=== PATIENT | male | born 1960 | race Caucasian/White ===

== ENCOUNTER 2017-10-09 09:32 | Emergency (ER) | payer BC ==
[2017-10-09] MEDS ORDERED: Sodium Chloride 0.9% 5 ML Syringe FLUSH PRN (09:49)
[2017-10-09] MEDS ORDERED: Ondansetron 4 MG/2 ML SDV IVPUSH ONE (10:21)
[2017-10-09] MEDS ORDERED: Morphine 4 MG/ML Syringe IVPUSH ONE (10:21)
[2017-10-09 10:24] LABS: CHLORIDE,CL 104 mmol/L (98-115); SODIUM,NA 141 mmol/L (136-145)
[2017-10-09] MEDS ORDERED: Famotidine 20 MG/2 ML SDV IVPUSH ONE (10:24)
--- NOTE | 2017-10-09 10:31 | EDM.PDOC ---
ED HPI GENERAL MEDICAL PROBLEM - General Chief Complaint: Chest Pain Stated Complaint: Chest pain Time Seen by Provider: 10/09/17 09:49 Source of Information: Reports: Patient History Limitations: Reports: No Limitations - History of Present Illness INITIAL COMMENTS - FREE TEXT/NARRATIVE: Patient is a 57-year-old gentleman who presents to the emergency department this morning with a complaint of chest pain. Patient states at approximately 7 a.m. this morning he had a Pop Tart and bottle of Mountain Dew and developed severe pain in his mid sternum and epigastric region. Pain described as feeling like a bubble under his skin and radiated under her left breast. Patient states that incident was while seated at rest. Symptoms did not resolve , and he decided to present to the emergency department. 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 Patient did have a brother who was 52 years old and from [place]. Patient is currently on hypertensive and diabetic medication and states he is well- controlled. Patient denies shortness of breath, headache, fever, nausea, vomiting, diarrhea, out of country travel, or extremity edema. Onset: Today Onset Date: 10/09/17 Onset Time: 07:00 Duration: Hour(s):, Constant Location: Reports: Chest, Abdomen Quality: Reports: Ache, Burning Severity: Moderate Improves with: Reports: None Worsens with: Reports: None Associated Symptoms: Reports: Chest Pain Treatments DBA: Reports: Aspirin Chest Pain Score (Numeric/FACES): 12 - Related Data Allergies Allergy/AdvReac Type Severity Reaction Status Date / Time No Known Drug Allergies Allergy Cannot Verified 06/22/15 22:01 Remember Home Meds: Home Meds [place] 1 cap PO DAILY 06/23/15 [History] Krill/Om-3/DHA/EPA/Phospho/Ast [Megared Dante-3 Krill Oil Sfgl] 1 each PO DAILY 06/23/15 [History] Metoprolol Succinate [Toprol XL] 50 mg PO DAILY 06/23/15 [History] Multivit-Min/FA/Lycopene/Lut [Centrum Silver Tablet] 1 each PO DAILY 06/23/15 [ History] atorvaSTATin [Lipitor] 20 mg PO BEDTIME 06/23/15 [History] metFORMIN [Glucophage] 500 mg PO DAILY 06/23/15 [History] Aspirin 81 mg PO DAILY 10/09/17 [History] Lutein/Minerals/Vit A,C & E [Ocuvite] 1 tab PO DAILY 10/09/17 [History] Milk Thistle 175 mg PO DAILY 10/09/17 [History] Ranitidine HCl [Zantac] 150 mg PO BID #30 tablet 10/09/17 [Rx] amLODIPine [Norvasc] 10 mg PO DAILY 10/09/17 [History] Past Medical History HEENT History: Reports: Hard of Hearing, Impaired Vision Cardiovascular History: Reports: High Cholesterol, Hypertension, SOB on Exertion Respiratory History: Reports: Pneumonia, Recurrent Gastrointestinal History: Reports: Chronic Constipation, GERD Neurological History: Reports: None Endocrine/Metabolic History: Reports: Diabetes, Type II Dermatologic History: Reports: Other (See Below) Other Dermatologic History: rash on shins when it is dry in the winter - Infectious Disease History Infectious Disease History: Reports: Chicken Pox - Past Surgical History Head Surgeries/Procedures: Reports: None Cardiovascular Surgical History: Reports: None Respiratory Surgical History: Reports: None GI Surgical History: Reports: Cholecystectomy, Colonoscopy, EGD Endocrine Surgical History: Reports: None Neurological Surgical History: Reports: C-Spine Other Neurological Surgeries/Procedures: C7 REPLACED Social & Family History - Family History HEENT: Reports: None Cardiac: Reports: Aneurysm, [place] Respiratory: Reports: Other (See Below) Other Respiratory Family Hisory: lung cancer Endocrine/Metabolic: Reports: Hypothyroidism Oncologic: Reports: Lung - Tobacco Use Smoking Status *Q: Never Smoker Years of Tobacco use: 9 Packs/Tins Daily: 1.5 Used Tobacco, but Quit: Yes Month/Year Tobacco Last Used: June Second Hand Smoke Exposure: No - Caffeine Use Caffeine Use: Reports: Coffee, Soda Other Caffeine Use: diet - Recreational Drug Use Recreational Drug Use: No ED ROS GENERAL - Review of Systems Review Of Systems: ROS reveals no pertinent complaints other than HPI. Constitutional: Reports: No Symptoms HEENT: Reports: No Symptoms Respiratory: Reports: No Symptoms Cardiovascular: Reports: Chest Pain Endocrine: Reports: No Symptoms GI/Abdominal: Reports: No Symptoms : Reports: No Symptoms Musculoskeletal: Reports: No Symptoms Skin: Reports: No Symptoms Neurological: Reports: No Symptoms Psychiatric: Reports: No Symptoms Hematologic/Lymphatic: Reports: No Symptoms Immunologic: Reports: No Symptoms ED EXAM, GENERAL - Physical Exam Exam: See Below Exam Limited By: No Limitations General Appearance: Alert, WD/WN, Mild Distress Throat/Mouth: Normal Inspection, Normal Oropharynx, No Airway Compromise Head: Atraumatic, Normocephalic Neck: Normal Inspection, Supple, Non-Tender Respiratory/Chest: No Respiratory Distress, Lungs Clear, Normal Breath Sounds, No Accessory Muscle Use Cardiovascular: Regular Rate, Rhythm, No Murmur, Bradycardia GI/Abdominal: Normal Bowel Sounds, Soft, No Organomegaly, No Distention, No Abnormal Bruit, No Mass, Tender (Epigastric). No: Hernia, Mass Back Exam: Normal Inspection. No: CVA Tenderness (L), CVA Tenderness (R) Extremities: Normal Inspection, No Pedal Edema Neurological: Alert, Oriented, Normal Cognition Psychiatric: Normal Affect, Normal Mood Skin Exam: Warm, Dry, Intact, Normal Color, No Rash Lymphatic: No Adenopathy EKG INTERPRETATION EKG Date: 10/09/17 Time: 09:45 Rhythm: Other (Sinus bradycardia) Rate (Beats/Min): 55 Hermann: Normal P-Wave: Present QRS: LBBB Comparison: NA - No Prior EKG Course - Vital Signs Last Recorded V/S: Last Vital Signs Temp 98.1 F 10/09/17 09:50 Pulse 62 10/09/17 10:12 Resp 20 10/09/17 10:12 BP 136/64 10/09/17 10:12 Pulse Ox 98 10/09/17 10:12 - Orders/Labs/Meds Orders: Active Orders 24 hr Category Date Time Status Cardiac Monitoring [RC] . DIRECTED Care 10/09/17 09:49 Ordered EKG Documentation Completion [RC] ASDIRECTED Care 10/09/17 09:50 Ordered Peripheral IV Care [RC] . DIRECTED Care 10/09/17 09:50 Ordered Chest 1V Frontal [CR] Stat Exams 10/09/17 09:50 Ordered Sodium Chloride 0.9% [Syrex Flush] Med 10/09/17 09:49 Ordered 5 ml FLUSH Q8HR PRN Peripheral IV Insertion Adult [OM.PC] Stat Oth 10/09/17 09:49 Ordered Saline Lock Insert [OM.PC] Stat Oth 10/09/17 09:49 Ordered EKG 12 Lead [EK] Stat Ther 10/09/17 09:50 Ordered Medication Orders Sodium Chloride (Syrex Flush) 5 ml FLUSH Q8HR PRN PRN Reason: Keep Vein Open Labs: Laboratory Tests 10/09/17 10/09/17 10/09/17 Range/Units 09:50 09:50 09:50 WBC 7.5 (5.0-10.0) 10^3/uL RBC 4.73 (4.50-6.00) 10^6/uL Hgb 13.6 (13.0-17.0) g/dL Hct 41.3 (40.0-52.0) % MCV 87.3 (82.0-92.0) fL MCH 28.7 (27.0-31.0) pg MCHC 32.9 (32.0-36.0) g/dL RDW 12.4 (11.5-14.5) % Plt Count 264 (150-300) 10^3/uL MPV 7.6 (7.4-10.4) fL Neut % (Auto) 66.5 (50.0-70.0) % Lymph % (Auto) 18.1 L (20.0-40.0) % [place] % (Auto) 13.4 H (2.0-8.0) % Eos % (Auto) 1.8 (1.0-3.0) % Baso % (Auto) 0.2 (0.0-1.0) % Neut # (Auto) 5.0 (2.5-7.0) 10^3/uL Lymph # (Auto) 1.4 (1.0-4.0) 10^3/uL [place] # (Auto) 1.0 H (0.1-0.8) 10^3/uL Eos # (Auto) 0.1 (0.1-0.3) 10^3/uL Baso # (Auto) 0.0 (0.0-0.1) 10^3/uL PT 10.2 (8.9-11.4) SEC INR 1.0 (0.9-1.1) APTT 21.6 (20.8-31.2) SEC Sodium 141 (136-145) mmol/L Potassium 3.7 (3.3-5.3) mmol/L Chloride 104 (98-115) mmol/L Carbon Dioxide 27.6 (21.0-32.0) mmol/L BUN 18 (6-25) mg/dL Creatinine 1.10 (0.51-1.17) mg/dL Est Cr Clr Drug Dosing 78.91 mL/min Estimated GFR (MDRD) > 60 mL/min Glucose 177 H (70-110) mg/dL Calcium 9.0 (8.7-10.3) mg/dL Magnesium 2.1 (1.8-2.4) mg/dL Total Bilirubin 1.1 H (0.2-1.0) mg/dL AST 58 H (15-37) U/L ALT 59 (12-78) U/L Alkaline Phosphatase 115 (46-116) IU/L Troponin I < 0.04 (0.00-0.070) ng/mL Total Protein 7.0 (6.4-8.2) g/dL Albumin 3.78 (3.00-4.80) g/dL Lipase 192 (73-393) U/L Meds: Medications Generic Name Dose Route Start Last Admin Trade Name Freq PRN Reason Stop Dose Admin Sodium Chloride 5 ml 10/09/17 09:49 Syrex Flush FLUSH Q8HR PRN Keep Vein Open Discontinued Medications Generic Name Dose Route Start Last Admin Trade Name Freq PRN Reason Stop Dose Admin Famotidine 20 mg 10/09/17 10:24 Pepcid IVPUSH 10/09/17 10:25 ONETIME ONE Morphine Sulfate 4 mg 10/09/17 10:21 Morphine IVPUSH 10/09/17 10:22 ONETIME ONE Ondansetron HCl 4 mg 10/09/17 10:21 Zofran IVPUSH 10/09/17 10:22 ONETIME ONE - Radiology Interpretation Free Text/Narrative:: Chest x-ray shows no acute cardiopulmonary process - Re-Assessments/Exams Free Text/Narrative Re-Assessment/Exam: 10/09/17 10:58 Patient afebrile, nontoxic appearing, vital signs stable, chest pain resolved. Discussed case with Marcie at [facility] who is the patient's local provider, and agreed if patient would like to be admitted for observation status. However , discussed with patient the choice of observation status for repeat lab work and patient declined and would like to follow up with Marcie this week. Departure - Departure Time of Disposition: 11:01 Disposition: Home, Self-Care 01 Condition: Good Clinical Impression: Atypical chest pain Gastritis Qualifiers: Gastritis type: unspecified gastritis Chronicity: acute Gastritis bleeding: without bleeding Qualified Code(s): K29.00 - Acute gastritis without bleeding Instructions: Nonspecific Chest Pain, [id number], Gastritis, Adult, Easy-to- Read Referrals: Jacoby Soto MD [Primary Care Provider] - Marcie Allen PA-C [Physician] - Additional Instructions: Follow-up at [facility] in the next 2-3 days. Return to emergency department sooner if symptoms continue or worsen. - My Orders Last 24 Hours: My Active Orders 10/09/17 09:49 Cardiac Monitoring [RC] . DIRECTED Sodium Chloride 0.9% [Syrex Flush] 5 ml FLUSH Q8HR PRN Peripheral IV Insertion Adult [OM.PC] Stat Saline Lock Insert [OM.PC] Stat 10/09/17 09:50 EKG Documentation Completion [RC] ASDIRECTED Peripheral IV Care [RC] . DIRECTED Chest 1V Frontal [CR] Stat EKG 12 Lead [EK] Stat - Assessment/Plan Last 24 Hours: My Active Orders 10/09/17 09:49 Cardiac Monitoring [RC] . DIRECTED Sodium Chloride 0.9% [Syrex Flush] 5 ml FLUSH Q8HR PRN Peripheral IV Insertion Adult [OM.PC] Stat Saline Lock Insert [OM.PC] Stat 10/09/17 09:50 EKG Documentation Completion [RC] ASDIRECTED Peripheral IV Care [RC] . DIRECTED Chest 1V Frontal [CR] Stat EKG 12 Lead [EK] Stat Assessment:: Atypical chest pain, gastritis Plan: Follow-up with Marcie this week
[2017-10-09 11:03] VITALS: BP 122/60
== END 2017-10-09 11:20 | disposition home or self-care (01) ==
LOC: KA.ED 09:32
DX: R07.89 Other chest pain (principal); K29.00 Acute gastritis without bleeding; I10 Essential (primary) hypertension; E78.00 Pure hypercholesterolemia, unspecified; K21.9 Gastro-esophageal reflux disease without esophagitis; E11.9 Type 2 diabetes mellitus without complications; Z90.49 Acquired absence of other specified parts of digestive tract; Z87.01 Personal history of pneumonia (recurrent); Z79.899 Other long term (current) drug therapy; Z79.82 Long term (current) use of aspirin
CPT/HCPCS: 36415; 71045; 80053; 83690; 83735; 84484; 85025; 85610; 85730; 93005; 96374; 96375; 99285; J2270; J2405; S0028